=== PATIENT | female | born 2000 | race Two or more races ===

== ENCOUNTER 2024-06-03 16:18 | Emergency (ER) | payer MEDICAID, OTHER ==
[~2024-06-03] VITALS: Ht 160 cm; Wt 63.2 kg
[2024-06-03 17:21] VITALS: BP 129/60; PULSE 80; RESP 16; O2SAT 99
== END 2024-06-03 18:36 | disposition left against medical advice (07) ==
LOC: ER 16:18
DX: R73.9 Hyperglycemia, unspecified (principal); R42 Dizziness and giddiness; Z53.21 Procedure and treatment not carried out due to patient leaving prior to being seen by health care provider
CPT/HCPCS: 82962